=== PATIENT | male | born 1960 | race Caucasian/White ===

== ENCOUNTER → 2021-12-20 | Outpatient (CLI) | payer BC | LOC: M PLAIMG 09:24 | PROVIDERS: ATTEND Nurse Practitioner Women's Health | DX: N20.0 Calculus of kidney (principal) ==

== ENCOUNTER → 2022-12-06 | Outpatient (CLI) | payer BC | LOC: M RAD 09:46 | PROVIDERS: ATTEND Physician Assistant | DX: L97.912 Non-pressure chronic ulcer of unspecified part of right lower leg with fat layer exposed (principal) ==

== ENCOUNTER → 2022-12-18 | Outpatient (CLI) | payer BC | LOC: M RAD 11:27 | PROVIDERS: ATTEND Physician Assistant | DX: I87.303 Chronic venous hypertension (idiopathic) without complications of bilateral lower extremity (principal); L97.912 Non-pressure chronic ulcer of unspecified part of right lower leg with fat layer exposed ==